=== PATIENT | female | born 1995 | race Two or more races ===

== ENCOUNTER 2016-06-22 10:57 | Emergency (ER) | payer MEDICAID ==
[~2016-06-22] VITALS: Ht 157.5 cm; Wt 60.3 kg
--- NOTE | 2016-06-22 11:20 | NUR ---
PT BIB MOTHER C/O MUTLIPLE LACERATIONS TO JAIME HANDS, CUT ON BROKEN GLASS. TETANUS UTD. NAD NOTED. NO OTHER COMPLAINTS. DENIES SI/HI.
--- NOTE | 2016-06-22 12:40 | NUR ---
DR ASH AT BEDSIDE
[2016-06-22 13:42] VITALS: BP 107/59
--- NOTE | 2016-06-22 14:18 | NUR ---
Patient discharged to home in stable condition. Written and verbal after care instructions given. Patient verbalizes understanding of instruction. WOUNDS DRESSED. PT CONTINUES TO DENIES SI. A/OX4. PT'S MOTHER WANTS HER TO BE EVALUATED BY AN OUTSIDE PET TEAM; EXPLAINED THOROUGHLY THAT THE PT IS MEDICALLY DISCHARGE FROM THE ER AND CANNOT WAIT IN ER BED UNTIL EVAL TEAM IS HERE. ESCORTED PT TO WAITING ROOM; ADVISED THAT SHE MAY WAIT IN WAITING ROOM.
== END 2016-06-22 14:20 | disposition home or self-care (01) ==
LOC: ER 10:59
DX: S61.422A Laceration with foreign body of left hand, initial encounter (principal); S61.421A Laceration with foreign body of right hand, initial encounter; X78.0XXA Intentional self-harm by sharp glass, initial encounter; Y93.89 Activity, other specified; Y92.89 Other specified places as the place of occurrence of the external cause; Y99.8 Other external cause status; F84.0 Autistic disorder
CPT/HCPCS: 73130-TC; A4606; Z7610

== ENCOUNTER 2017-02-28 12:41 | Emergency (ER) | payer MEDICAID, OTHER ==
[~2017-02-28] VITALS: Ht 157.5 cm; Wt 49.9 kg
[2017-02-28 13:08] VITALS: BP 122/60
[2017-02-28] MEDS ORDERED: LIDOCAINE 0.5% HCL 50 ML VIAL IJ ONE (15:30)
[2017-02-28 15:36] LABS: BASOPHILS % (AUTO) 0.5 % (0.0-2.0); EOSINOPHILS % (AUTO) 0.5 % (0.0-6.0); HEMATOCRIT 33 % (33-45); HEMOGLOBIN 11.4 g/dL (11.5-14.8); LYMPHOCYTES # (AUTO) 1.9 /CMM (0.8-4.8); LYMPHOCYTES % (AUTO) 30.9 % (20.0-44.0); MEAN CORPUSCULAR HEMOGLOBIN 30 PG (26.0-33.0); MEAN CORPUSCULAR HGB CONC 35 g/dl (31.0-36.0); MEAN CORPUSCULAR VOLUME 88 fL (82-100); MONOCYTES # (AUTO) 0.3 /CMM (0.1-1.30); MONOCYTES % (AUTO) 5.4 % (2.0-12.0); NEUTROPHILS # (AUTO) 3.8 /CMM (1.8-8.9); NEUTROPHILS % (AUTO) 62.7 % (43.0-81.0); PLATELET COUNT (AUTO) 310 /CMM (150-450); RDW COEFFICIENT OF VARIATION 13.4 (11.5-15.0); RED BLOOD CELL COUNT(AUTO) 3.78 MIL/uL (4.0-5.2)
[2017-02-28 15:46] LABS: CALCIUM, SERUM 9.1 mg/dL (8.5-10.1); CARBON DIOXIDE 28 mmol/L (21-32); CHLORIDE 104 mmol/L (98-107); CREATININE 0.5 mg/dL (0.6-1.3); GLUCOSE 94 mg/dL (74-106); POTASSIUM 3.8 mmol/L (3.5-5.1); SODIUM SERUM 137 mmol/L (136-145); UREA NITROGEN, BLOOD 5 mg/dL (7-18)
[2017-02-28 15:51] LABS: ALANINE AMINOTRANSFERASE 19 U/L (12-78); ALBUMIN 4.2 g/dL (3.4-5.0); ALCOHOL, BLOOD < 3 mg/dL (0-0); ALKALINE PHOSPHATASE 71 U/L (46-116); ASPARTATE AMINOTRANSFERASE 20 U/L (15-37); BILIRUBIN,DIRECT 0.1 mg/dL (0.0-0.2); BILIRUBIN,TOTAL 0.8 mg/dL (0.2-1.0); TOTAL PROTEIN, SERUM 8.1 g/dL (6.4-8.2)
[2017-02-28 15:58] LABS: ACETAMINOPHEN 0 ug/ml (10-30); SALICYLATE < 2.8 mg/dL (2.8-20.0)
[2017-02-28 16:10] LABS: APPEARANCE,URINE Cloudy (CLEAR); BILIRUBIN,URINE Negative (NEGATIVE); BLOOD, URINE Large Ery/uL (NEGATIVE); COLOR,URINE Light yellow (YELLOW); KETONES,URINE Negative (NEGATIVE); LEUKOCYTE ESTERASE ,URINE Small (NEGATIVE); NITRITE, URINE Negative (NEGATIVE); PROTEIN,URINE Negative (NEGATIVE); UGLUCOSE Negative (NEGATIVE); UROBILINOGEN,URINE 0.2 EU/dL (0.2)
[2017-02-28] MEDS ORDERED: LIDOCAINE /MPF 1% VIAL 5 ML VIAL ONE (16:17)
[2017-02-28 16:19] LABS: BACTERIA,URINE Moderate /HPF (None Seen); RBC,URINE 0-3 /HPF (0-2); SQUAMOUS EPITHELIAL CELL,UR Moderate /HPF (None Seen)
--- NOTE | 2017-02-28 17:50 | NUR ---
CALLED [facility]
== END 2017-02-28 21:03 | disposition home or self-care (01) ==
LOC: ER 12:43
DX: S61.011A Laceration without foreign body of right thumb without damage to nail, initial encounter (principal); F91.9 Conduct disorder, unspecified; F84.0 Autistic disorder; X78.0XXA Intentional self-harm by sharp glass, initial encounter; Y93.89 Activity, other specified; Y92.89 Other specified places as the place of occurrence of the external cause; Y99.8 Other external cause status
CPT/HCPCS: 12002; 36415; 73130; 80048; 80076; 80305; 80329; 81001; 84703; 85025; 87086; 99285; A4606; A6403; G0480 ×2; J3490; Z7610; 81000-TC

== ENCOUNTER 2017-03-12 12:43 | Emergency (ER) | payer MEDICAID ==
[~2017-03-12] VITALS: Ht 157.5 cm; Wt 55.3 kg
[2017-03-12 13:02] VITALS: BP 122/75
== END 2017-03-12 13:19 | disposition home or self-care (01) ==
LOC: ER 12:45
DX: Z48.02 Encounter for removal of sutures (principal)
CPT/HCPCS: 99281; A4606; Z7610; Z7502

== ENCOUNTER → 2017-03-12 | Emergency (ER) | payer MEDICAID ==
--- NOTE | 2017-03-12 14:54 | NUR ---
ERROR: Patient was registered twice. (Duplicate)
== END ==
LOC: ER 14:45
DX: Z53.21 Procedure and treatment not carried out due to patient leaving prior to being seen by health care provider (principal)